=== PATIENT | female | born 1970 | race Asian ===

== ENCOUNTER 2024-11-10 08:50 | Outpatient (REF) | payer OTHER, SELFPAY ==
--- NOTE | 2024-11-10 08:57 | EMG_ITS ---
Chief complaint: Bilateral hand numbness Reason for referral: Evaluate for Carpal Tunnel Syndrome versus ulnar neuropathy versus cervical radiculopathy Referred by: Linda GARCIA Procedure done: Bilateral upper extremities NCS/EMG Precautions and/or limitations: Left arm needle EMG deferred, patient has chronic ulcer on left deltoid. Occitan speaking, seen with denture finisher. The limb temperature was monitored continuously and remained between 32-36 degrees C during the performance of the NCS. Nerve Conduction Studies Anti Sensory Summary Table ?Stim Site NR Onset (ms) Norm Onset (ms) Peak (ms) Norm Peak (ms) O-P Amp (?V) Norm O-P Amp Site1 Site2 Delta-0 (ms) Dist (cm) Steve (m/s) Norm Steve (m/s) Left Median Anti Sensory (2nd Digit) Wrist ? 2.4 3.0 <3.6 68.4 >10 Wrist 2nd Digit 2.4 14.0 58 Right Median Anti Sensory (2nd Digit) Wrist ? 2.1 2.8 <3.6 63.3 >10 Wrist 2nd Digit 2.1 14.0 67 Left Ulnar Anti Sensory (5th Digit) Wrist ? 2.3 2.9 <3.7 46.1 >15.0 Wrist 5th Digit 2.3 14.0 61 Right Ulnar Anti Sensory (5th Digit) Wrist ? 2.3 2.9 <3.7 28.4 >15.0 Wrist 5th Digit 2.3 14.0 61 Motor Summary Table ?Stim Site NR Onset (ms) Norm Onset (ms) O-P Amp (mV) Norm O-P Amp iAmp (mV) Amp (1st) (%) Site1 Site2 Delta-0 (ms) Dist (cm) Steve (m/s) Norm Steve (m/s) Left Median Motor (Abd Poll Brev) Wrist ? 3.4 <3.9 6.4 >4.5 7.4 100.0 Elbow Wrist 3.4 19.5 57 >45 Elbow ? 6.8 4.1 5.1 64.1 Right Median Motor (Abd Poll Brev) Wrist ? 3.2 <3.9 11.6 >4.5 14.2 100.0 Elbow Wrist 3.7 20.0 54 >45 Elbow ? 6.9 10.8 12.7 93.1 Left Ulnar Motor (Abd Dig Minimi) Wrist ? 2.7 <3.0 10.9 >5 13.0 100.0 B Elbow Wrist 3.1 17.0 55 >45 B Elbow ? 5.8 10.3 12.6 94.5 A Elbow B Elbow 1.9 10.0 53 >45 A Elbow ? 7.7 8.9 11.0 81.7 Right Ulnar Motor (Abd Dig Minimi) Wrist ? 2.9 <3.0 11.1 >5 12.3 100.0 B Elbow Wrist 3.0 17.0 57 >45 B Elbow ? 5.9 9.2 10.9 82.9 A Elbow B Elbow 1.7 10.0 59 >45 A Elbow ? 7.6 7.4 9.0 66.7 Comparison Summary Table ?Stim Site NR Peak (ms) Norm Peak (ms) P-T Amp (?V) Site1 Site2 Delta-P (ms) Norm Delta (ms) Right Median/Radial Dig I Comparison (Digit 1 - 10cm) Median ? 2.3 <2.9 163.7 Median Radial 0.0 Radial ? 2.3 <2.8 30.8 EMG ?Side Muscle Nerve Root Ins Act Fibs Psw Amp Dur Poly Recrt Int Pat Comment Right 1stDorInt Ulnar C8-T1 Nml Nml Nml Nml Nml 0 Nml Complete Right FlexCarRad Median C6-7 Nml Nml Nml Nml Nml 0 Nml Complete Right Biceps Musculocut C5-6 Nml Nml Nml Nml Nml 0 Nml Complete Right Triceps Radial C6-7-8 Nml Nml Nml Nml Nml 0 Nml Complete Right Deltoid Axillary C5-6 Nml Nml Nml Nml Nml 0 Nml Complete FINDINGS: All motor and sensory nerves tested showed normal latencies, amplitudes and conduction velocities. Concentric needle EMG was performed in selected muscles of the right upper extremity. Study did not reveal signs of electric abnormalities as shown in the table above. IMPRESSION: 1. This is a normal study. 2. There is no electrodiagnostic evidence for median neuropathy, ulnar neuropathy, brachial plexopathy, or cervical radiculopathy. Thank you for your kind referral. Korin Mendosa MD, ABHINAV Board Certified, [place] [employer] and [employer] (ABPMR) Board Certified, [place] Board [employer] Electrodiagnostic [employer] (ABEM) CODIN [phone] ANGEL
--- OUTSIDE RECORDS SUMMARY | 2024-11-10 10:21 | XMS_ITS | Clinical Summary ---
Author Organization [facility] Address [address] [place] [address] Care Team Providers Care Meter Reader Inspector Name Role Phone Paulino Cote MD Primary Care Provider Unavailab le Medications Medication Sig Dispensed Refills Start Date End Date Status meloxicam (MOBIC) 7.5 MG tablet Take 1 tablet (7.5 mg total) by mouth daily. 30 tablet 0 01/11/2019 Active Active Problems No known active problems Social History Tobacco Use Types Packs/Day Years Used Date Smoking Tobacco: Never Assessed Sex and Gender Information Value Date Recorded Sex Assigned at Not on file Gender Identity Not on file Sexual Orientation Not on file Job Start Date Occupation Industry Not on file Not on file Not on file Plan of Treatment Health Maintenance Due Date Last Done Comments Hepatitis B Vaccines (1 of 3 - 3-dose series) 1969 Hepatitis C Screening 1969 COVID-19 Vaccine (#1) 02/10/1970 Depression Screening 1981 Preventative Health Evaluation 08/12/1987 DTap / Tdap / Td (1 - Tdap) 1988 Cervical Cancer Screening (P ap Smear) 1990 Colon Cancer Screening (Colonoscopy) 2014 Breast Cancer Screening (Mammogram) 08/12/2019 Shingrix-Zoster Vaccine (1 of 2) 08/12/2019 Influenza Vaccine (#1) 2024 Pneumococcal Vaccine Aged Out No long er eligible based on patient's age to complete this topic RSV Ped < 20 months Aged Out No longe r eligible based on patient's age to complete this topic Care Teams Meter Reader Inspector Relationship Specialty Start Date End Date Paulino Cote MD PCP - General Internal Medicine 10/30/18
--- OUTSIDE RECORDS SUMMARY | 2024-11-10 10:21 | XMS_ITS | Clinical Summary ---
Author Organization [facility] [address] [place] [address] Address [address], [place] Phone Care Team Providers Care Deer Farmer Name Role Phone Paulino Cote MD Primary Care Provider [phone] Allergies Active Allergy Reactions Criticality Noted Date Comments Levofloxacin 09/24/2016 Levaquin Medications docusate sodium (COLACE) 100 mg capsule Take 1 capsule (100 mg total) by mouth 2 (two) times a day. 09/23/19 24 Active polyethylene glycol (MIRALAX) 17 gram packet Take 1 Packet by mouth daily. 09/23/19 24 Active gabapentin (NEURONTIN) 300 mg capsule Take 1 capsule (300 mg total) by mouth 2 (two) times a day. 05/07/19 23 Active ibuprofen (ADVIL,MOTRIN) 800 mg tablet TAKE 1 TABLET EVERY 8 HOURS NEEDED FOR PAIN, TAKE WITH FOOD. 09/03/19 21 Active blood sugar diagnostic (FreeStyle Lite Strips) test strip USE TEST BLOODS SUGAR TWICE DAILY 03/09/19 21 Active FREESTYLE LANCETS MISC USE TO TEST BLOOD SUGAR TWICE DAILY 03/09/19 21 Active blood-glucose meter kit 1 Strip by Does not apply route 2 times daily. 02/06/20 18 Active atorvastatin (LIPITOR) 40 mg tabletIndications: Type 2 diabetes mellitus with other diabetic neurological complication (CMS/HCC V24, CMS/HCC V28) TAKE 1 TABLET BY MOUTH EVERY DAY 90 tablet 1 02/09/20 24 Active mupirocin (BACTROBAN) 2 % ointment Apply twice a day on the rash for 5 days 22 g 3 02/09/20 24 Active dulaglutide (Trulicity) 4.5 mg/0.5 mL pen injector injectionIndicatio ns:Type 2 diabetes mellitus with neurological manifestations ([facility] V24, [facility] V28) Inject 0.5 mL (4.5 mg total) under the skin every 7 (seven) days. 6 mL 3 10/07/19 25 Active empagliflozin (Jardiance) 25 mg tablet Take 25 mg by mouth daily. 90 tablet 3 10/07/19 25 Active losartan (Cozaar) 50 mg tablet Take 1 tablet (50 mg total) by mouth 1 (one) time each day. 30 each 11 10/23/19 25 026 Active betamethasone dipropionate (DIPROSONE) 0.05 % cream Apply twice a day on the rash for 7 days avoid itching 45 g 3 10/23/19 25 Active losartan-hydroCHLO ROthiazide (HYZAAR) 100-12.5 mg per tablet Take 1 tablet by mouth 1 (one) time each day. 90 tablet 1 02/09/20 24 025 Discontinued Hospital, Clinic, or Other Facility Administered Medication Ordered Dose Route Frequency Start Date End Date Status lidocaine (XYLOCAINE) 1 % injection 3 mLIndications:Adhesi ve capsulitis of left shoulder 3 mL inj Once PRN Procedure 10/12/2024 10/12/2024 Ended triamcinolone acetonide (KENALOG-40) 40 mg/mL injection 40 mgIndications:Adhesi ve capsulitis of left shoulder 40 mg IAtc Once PRN Procedure 10/12/2024 10/12/2024 Ended Active Problems Problem Noted Date Diagnosed Date Hyperlipidemia 10/08/2017 Type 2 diabetes mellitus wit h neurological manifestations ([facility] V24, [facility] V28) 10/08/2017 Overview (12/30/2023): Comments: Eye exam Dr. Urena 09/12/2011 -ve for Retinopathy Vitamin D deficiency 10/08/2017 Carpal tunnel syndrome 06/26/2017 Hypertension 06/26/2017 Iron deficiency anemia 06/26/2017 Nephrolithiasis 01/28/2017 Overview (12/30/2023): Comments: s/p lithotripsy Eczema 04/30/2016 Allergic rhinitis 04/17/2010 Encounters Date Type Department Care Team Description 10/25/2024 Telephone Internal Medicine [address] [phone] Alex Feldman [place] 10/25/2024 Telephone Internal Medicine [facility] [address] [phone] Haile Flores [place] 10/22/2024 12:30 PM EDT Office Visit Internal [facility] [address] [phone] Paulino Cote MD Dizziness (Primary Dx); Type 2 diabetes mellitus with neurological manifestations (CMS/HCC V24, CMS/HCC V28); Neurotic excoriations 10/22/2024 [facility] [address] [phone] Paulino Cote MD 10/21/2024 [facility] Medicine [facility] [address] [phone] Paulino Cote MD 10/13/2024 Telephone Orthopedic Surgery [facility] [address] [place] [phone] Dony Feldman [place] 10/12/2024 10:55 AM EDT Ancillary Procedure Orthopedic Surgery [facility] [address] [place] [phone] 10/12/2024 10:30 AM EDT Office Visit Orthopedic Surgery [facility] [address] [phone] Tracey Sequeira MD Adhesive capsulitis of left shoulder (Primary Dx) 10/06/2024 8:30 AM EDT Office Visit [address] [phone] Brea Kruse PA Type 2 diabetes mellitus with neurological manifestations (CMS/HCC V24, CMS/HCC V28) (Primary Dx); Secondary hypertension; Hyperlipidemia, unspecified hyperlipidemia type 10/05/2024 9:00 AM EDT Office Visit Orthopedic Surgery - [place] 175 [facility] [address] [place] [phone] Linda Kirkpatrick PA Hand paresthesia (Primary Dx) 09/17/2024 9:30 AM EDT Office Visit Orthopedic Surgery [facility] 160 [address] [facility] [address] [place] [phone] Tracey Sequeira MD Adhesive capsulitis of left shoulder (Primary Dx); Left hand pain 2024 11:00 AM EDT Office Visit Internal Medicine - [place] 175 [facility] [address] [place] [address] Paulino Cote MD Primary hypertension (Primary Dx); Type 2 diabetes mellitus with neurological manifestations (CMS/[facility] V24, CMS/[facility] V28); Hypercholesterolemia; Right lumbar radiculitis from Last 3 Months Immunizations Name Administration Dates Next Due Influenza trivalent, MDCK, 0 .5mL, preservative free (Flucelvax) 6mo and older 11/06/2024 Influenza, Unspecified 12/20/2023,12/23/2022,07/2021 Pneumococcal conjugate 13 va lent (Prevnar 13, PCV13) 2mo and older 07/08/2017 Pneumococcal polysaccharide 23 valent (Pneumovax 23) 2yo and older 07/25/2020 Tdap Tetanus diptheria acell ular pertussis (Boostrix; Adacel) 7yo and older 07/25/2020 Surgical History Surgery Date Site/Laterality Comments LITHOTRIPSY PROCEDURE: HISTORICAL LITHOTRIPSY COLONOSCOPY 06/14/2020 N/A PROCEDURE: HISTORICAL COLONOSCOPY; COMMENT: negative Medical History Medical History Date Comments Allergic rhinitis 04/17/2010 DX:Allergic rh initis Carpal tunnel syndrome 06/26/2017 DX:Carpal tunnel syndrome Eczema 04/30/2016 DX:Eczema Hyperlipidemia 10/08/2017 DX:Hyperlipidemi a Hypertension 06/26/2017 DX:Hypertension Iron deficiency anemia 06/26/2017 DX:Iron d eficiency anemia Nephrolithiasis 01/28/2017 DX:Nephrolithias is; COMMENT: Comments: s/p lithotripsy Type 2 diabetes mellitus wit h neurological manifestations (CMS/HCC V24, CMS/[facility] V28) 10/08/2017 DX:Type 2 diabetes mellitus with neurological manifestations ([facility]); COMMENT: Comments: Eye exam Dr. Urena 09/12/2011 -ve for Retinopathy Vitamin D deficiency 10/08/2017 DX:Vitamin D deficiency Kidney stones DX:Kidney stones Abdominal pain DX:Abdominal pillo n Constipation DX:Constipation Family History Medical History Relation Name Comments No Known Problems Father Relation Name Status Comments Father Mother Social History Tobacco Use Types Packs/Day Years Used Date Smoking Tobacco: Never Smokeless Tobacco: Never Tobacco Cessation:Counseling Given: Not Answered Alcohol Use Standard Drinks/Week Comments No 0 (1 standard drink = 0.6 oz pur e alcohol) Comments Unknown Sex and Gender Information Value Date Recorded Sex Assigned at Female 05/05/2024 1:29 PM EST Legal Sex Female 1:42 AM EST Gender Identity Female 05/05/2024 1:29 PM EST Sexual Orientation Straight 05/05/2024 1: 29 PM EST Obstetrics History Last Filed Vital Signs Vital Sign Reading Time Taken Comments Blood Pressure 126/80 10/22/2024 11:56 AM EDT Pulse 111 10/22/2024 11:56 AM EDT Temperature 35.6 C (96 F) 10/22/2024 11:56 AM EDT Respiratory Rate - - Oxygen Saturation 99% 10/22/2024 11:56 AM EDT Inhaled Oxygen Concentration - - Weight 67.2 kg (148 lb 3.2 oz) 10/22/2024 11:56 AM EDT Height 160 cm (5' 3 ) 10/22/2024 11:56 AM EDT Body Mass Index 26.25 10/22/2024 11:56 AM EDT Plan of Treatment Upcoming Encounters Date Type Department Care Team (Late st Contact Info) Description 01/06/2025 1:00 PM EST Office Visit [facility] Hematology Oncology [address] [place] [phone] Nataliya Turner PA [address] [place] [address] 01/07/2025 10:00 AM EST Office Visit Endocrinology [address] [phone] Brea Kruse PA [address] [place] [address] 01/13/2025 11:30 AM EST Office Visit Orthopedic Surgery - [place] 160 175 [facility] 160 [place] [phone] Tracey Sequeira MD 175 [facility] 160 [place] [address] 02/10/2025 11:00 AM EST Office Visit Internal Medicine - [place] 175 [facility] 200 [place] [phone] Paulino Cote MD 175 [facility] 200 [place] [address] Health Maintenance Due Date Last Done Comments Diabetes: Annual Foot Exam 08/12/1979 Hepatitis A Vaccines (1 of 2 - Risk 2-dose series) 1988 Hepatitis B Vaccines (1 of 3 - 19+ 3-dose series) 1988 Zoster Vaccines (1 of 2) 08/12/2019 HIV Screening 02/09/2022 Social Influencers of Health Screening 02/09/2022 Breast Cancer Screening 07/05/2022 07/05/2020 Depression Screening 03/03/2024 COVID-19 Vaccine ( season) 2024 03/21/2021, 08/23/2020, 08/02/2020 Diabetes: Annual Retina Eye Exam 03/16/2025 03/16/2024, 01/30/2023 Diabetes: Annual Urine Albumin-Creatinine Ratio (uACR) 04/07/2025 04/07/2024, 12/24/2023 Diabetes: Blood Sugar Control Test (HGBA1C) 04/08/2025 10/06/2024, 07/06/2024, 04/07/2024, Additional history exists Cervical Cancer Screening: Pap Smear 05/27/2025 05/27/2022 Pneumococcal Vaccine: 50+ Years (3 of 3 - PCV20 or PCV21) 07/25/2025 07/25/2020, 07/08/2017 Diabetes: Annual GFR (Glomerular Filtration Rate) 10/22/2025 10/22/2024, 04/07/2024, 05/29/2023 Hypertension/CHF/CAD Annual BMP Blood Test 10/22/2025 10/22/2024, 04/07/2024, 05/29/2023 Cholesterol Screening (Lipid Panel) 04/07/2029 04/07/2024, 05/29/2023 Colorectal Cancer Screening: Colonoscopy 06/14/2030 06/14/2020 DTaP,Tdap,and Td Vaccines (2 - Td or Tdap) 07/25/2030 07/25/2020 Hepatitis C Screening Completed 05/06/2017 Influenza Vaccine Completed 11/06/2024, , 12/23/2022, Additional history exists HIB Vaccines Aged Out No longer eligi ble based on patient's age to complete this topic HPV Vaccines Aged Out No longer eligi ble based on patient's age to complete this topic IPV Vaccines Aged Out No longer eligi ble based on patient's age to complete this topic MMR Vaccines Aged Out No longer eligi ble based on patient's age to complete this topic Meningococcal ACWY Vaccine Aged Out N o longer eligible based on patient's age to complete this topic Meningococcal B Vaccine Aged Out No l onger eligible based on patient's age to complete this topic RSV Immunization Patients Under 20 months Aged Out No longer eligible based on patient's age to complete this topic Varicella Vaccines Aged Out No longer eligible based on patient's age to complete this topic Procedures Procedure Name Priority Date/Time Associated Diagnosis Comments CBC WITH AUTO DIFFERENTIAL Routine 10/22/2024 12:34 PM EDT Dizziness Type 2 diabetes mellitus with neurological manifestations (CMS/HCC V24, CMS/HCC V28) CBC AND DIFFERENTIAL Routine 10/22/2024 12:34 PM EDT Dizziness Type 2 diabetes mellitus with neurological manifestations (CMS/HCC V24, CMS/HCC V28) COMPREHENSIVE METABOLIC PANEL Routine 10/22/2024 12:34 PM EDT Dizziness Type 2 diabetes mellitus with neurological manifestations (CMS/HCC V24, CMS/HCC V28) POC URINE NON-AUTO W/O MICRO Routine 10/22/2024 12:29 PM EDT Type 2 diabetes mellitus with neurological manifestations (CMS/HCC V24, CMS/HCC V28) US ARTHROCENTESIS ASP INJ JOINT MAJOR RIGHT Routine 10/12/2024 10:52 AM EDT Adhesive capsulitis of left shoulder [place] ARTHROCENTESIS/ASPIRAT ION/INJECTION MAJOR JOINT/BURSA W/O U/S GUIDANCE Routine 10/12/2024 10:30 AM EDT Adhesive capsulitis of left shoulder HEMOGLOBIN A1C Routine 10/06/2024 9:14 AM EDT Type 2 diabetes mellitus with neurological manifestations (CMS/HCC V24, CMS/HCC V28) POC GLUCOSE Routine 10/06/2024 8:39 AM EDT Type 2 diabetes mellitus with neurological manifestations (CMS/HCC V24, CMS/HCC V28) XR HAND 3+ VIEWS LEFT Routine 09/17/2024 9:34 AM EDT Left hand pain MICROALBUMIN CREATININE URINE RATIO Routine 04/07/2024 10:57 AM EST Type 2 diabetes mellitus with neurological manifestations (CMS/HCC V24, CMS/HCC V28) LIPID PANEL WITH REFLEX TO DIRECT LDL Routine 04/07/2024 10:57 AM EST Type 2 diabetes mellitus with neurological manifestations (CMS/HCC V24, CMS/HCC V28) DIABETES EYE EXAM Routine 01/30/2023 PAP SMEAR Routine 05/27/2022 [facility] SCREENING DIGITAL Routine 07/05/2020 8:50 AM EDT Encounter for screening mammogram for malignant neoplasm of breast COLONOSCOPY Routine 06/14/2020 HEPATITIS C SCREENING Routine 05/06/2017 from Last 3 Months or Most Recently Relevant to Health Maintenance Results * (ABNORMAL) CBC auto differential (10/22/2024 12:34 PM EDT) WBC 13.7(H) 4.8 - 10.8 K/mcL LAB HEMETOLOGY METHOD 10/22/2024 1:53 PM EDT [facility] RBC 5.60(H) 3.80 - 4.80 M/mcL LAB HEMETOLOGY METHOD 10/22/2024 1:53 PM EDT [facility] Hemoglobin 15.7 11.5 - 16.0 g/dL LAB HEMETOLOGY METHOD 10/22/2024 1:53 PM EDT [facility] Hematocrit 46.8 35.0 - 47.0 % LAB HEMETOLOGY METHOD 10/22/2024 1:53 PM EDT [facility] MCV 83.9 79.0 - 98.0 FL LAB HEMETOLOGY METHOD 10/22/2024 1:53 PM EDT [facility] MCH 28.1 27.0 - 32.0 pcg LAB HEMETOLOGY METHOD 10/22/2024 1:53 PM EDT [facility] MCHC 33.5 32.0 - 37.0 g/dL LAB HEMETOLOGY METHOD 10/22/2024 1:53 PM EDT [facility] RDW 12.6 11.0 - 15.0 % LAB HEMETOLOGY METHOD 10/22/2024 1:53 PM EDT [facility] Platelets 274 130 - 400 K/mcL LAB HEMETOLOGY METHOD 10/22/2024 1:53 PM EDT [facility] MPV 11.9(H) 7.0 - 11.0 FL LAB HEMETOLOGY METHOD 10/22/2024 1:53 PM EDT [facility] NRBC 0.0 <1.0 % LAB HEMETOLOGY METHOD 10/22/2024 1:53 PM EDT [facility] NRBC Absolute 0.00 <0.10 K/mcL LAB HEMETOLOGY [facility] Neut[facility]ils Relative 78.3 % LAB HEMETOLOGY METHOD 10/22/2024 1:53 PM [facility] Lymphocytes Relative 14.3 % LAB HEMETOLOGY METHOD 10/22/2024 1:53 PM [facility] Monocytes Relative 6.2 % LAB HEMETOLOGY METHOD 10/22/2024 1:53 PM [facility] Eosinophils Relative 0.4 % LAB HEMETOLOGY METHOD 10/22/2024 1:53 PM [facility] Basophils Relative 0.2 % LAB HEMETOLOGY METHOD 10/22/2024 1:53 PM [facility] Immature Granulocytes Relative 0.6 % LAB HEMETOLOGY METHOD 10/22/2024 1:53 PM [facility] Neutrophils Absolute 10.74(H) 1.50 - 7.00 K/mcL LAB HEMETOLOGY METHOD 10/22/2024 1:53 PM [facility] Lymphocytes Absolute 1.96 1.00 - 5.00 K/mcL LAB HEMETOLOGY METHOD 10/22/2024 1:53 PM [facility] Monocytes Absolute 0.85 0.20 - 1.00 K/mcL LAB HEMETOLOGY METHOD 10/22/2024 1:53 PM [facility] Eosinophils Absolute 0.05 0.00 - 0.50 K/mcL LAB HEMETOLOGY METHOD 10/22/2024 1:53 PM [facility] Basophils Absolute 0.03 0.00 - 0.20 K/mcL LAB HEMETOLOGY METHOD 10/22/2024 1:53 PM [facility] Immature Granulocytes Absolute 0.08(H) 0.00 - 0.03 K/mcL LAB HEMETOLOGY METHOD 10/22/2024 1:53 PM EDT [facility] Blood Venous blood specimen / Unknown Venipuncture / Unknown 10/22/2024 12:34 PM EDT 10/22/2024 12:34 PM EDT us Paulino Cote MD LAB BLOOD ORDERABLES Final Resul t [facility] [address] [place] [address], [place] [phone] * (ABNORMAL) Comprehensive metabolic panel (10/22/2024 12:34 PM EDT) Sodium 135 133 - 145 mmol/L LAB CHEMISTRY METHOD 10/22/2024 2:44 PM [facility] Potassium 4.1 3.5 - 5.5 mmol/L LAB CHEMISTRY METHOD 10/22/2024 2:44 PM [facility] Chloride 100 96 - 110 mmol/L LAB CHEMISTRY METHOD 10/22/2024 2:44 PM [facility] CO2 25 21 - 32 mmol/L LAB CHEMISTRY METHOD 10/22/2024 2:44 PM [facility] Anion Gap 10 3 - 11 LAB CHEMISTRY METHOD 10/22/2024 2:44 PM [facility] Glucose 211(H) 70 - 100 mg/dL LAB CHEMISTRY METHOD 10/22/2024 2:44 PM [facility] BUN 18 5 - 25 mg/dL LAB CHEMISTRY METHOD 10/22/2024 2:44 PM [facility] Creatinine 0.87 0.50 - 1.10 mg/dL LAB CHEMISTRY METHOD 10/22/2024 2:44 PM [facility] eGFR 79 >=60 mL/min/1. 73m2 LAB CHEMISTRY METHOD 10/22/2024 2:44 PM [facility] Comment:Calculation based on the Chronic Kidney Disease Epidemiology Collaboration (CKD-EPI) equation refit without adjustment for race. BUN/Creatinine Ratio 20.7 LAB CHEMISTRY METHOD 10/22/2024 2:44 PM EDT [facility] Calcium 9.6 8.5 - 10.5 mg/dL LAB CHEMISTRY METHOD 10/22/2024 2:44 PM EDT [facility] AST (SGOT) 26 10 - 42 unit/L LAB CHEMISTRY METHOD 10/22/2024 2:44 PM EDT [facility] ALT (SGPT) 51 10 - 60 unit/L LAB CHEMISTRY METHOD 10/22/2024 2:44 PM EDT [facility] Alkaline Phosphatase 139(H) 42 - 121 unit/L LAB CHEMISTRY METHOD 10/22/2024 2:44 PM EDT [facility] Total Protein 8.3(H) 6.0 - 8.0 g/dL LAB CHEMISTRY METHOD 10/22/2024 2:44 PM EDT [facility] Albumin 4.5 3.2 - 5.0 g/dL LAB CHEMISTRY METHOD 10/22/2024 2:44 PM EDT [facility] Total Bilirubin 0.6 0.0 - 1.4 mg/dL LAB CHEMISTRY METHOD 10/22/2024 2:44 PM EDT [facility] Blood Venous blood specimen / Unknown Venipuncture / Unknown 10/22/2024 12:34 PM EDT 10/22/2024 12:34 PM EDT us Paulino Cote MD LAB BLOOD ORDERABLES Final Resul t [facility] [address] [place] [address], * (ABNORMAL) POC Urine Non-Auto W/O Micro (10/22/2024 12:29 PM EDT) Glucose UA POC 3+(A) Negative, Trace mg/dL Leukocytes UA POC Negative Negative Nitrite UA POC Negative Negative Urobilinogen UA POC 0.2 E.U./dL 0.2 E.U./dL, 1.0 E.U./dL, 8 , Unable to interpret due to interfering substances mg/dL Protein UA POC Negative Negative mg/dL PH UA POC 5.5 Blood UA POC Negative Negative Specific [place] UA POC 1.020 Ketones UA POC 1+(A) Negative Bilirubin UA POC Negative Negative Urine Urine specimen obtained by clean catch procedure / Unknown 10/22/2024 12:29 PM EDT us Paulino Cote MD POINT OF CARE TEST ENTER/EDIT OR DERABLES Final Result * US Arthrocentesis Asp Inj Joint Major Right (10/12/2024 10:52 AM EDT) Anatomical Region Laterality Modality Extremity Right Ultrasound Narrative 10/12/2024 5:13 PM EDT PROCEDURE Left glenohumeral injection for osteoarthritis. Risk including infection, post-injection steriod flare, hypopigmentation, neurovascular injury and fat atrophy, were thoroughly discussed with the patient. The patients understood the risks and gave verbal consent for the procedure. The posteriorlateral shoulder was prepped with Chloro-prep after anatomical landmarks where palpated and visualized with ultrasound. Ethyle chloride was used as to topical anesthetic. Then using a 23-gauge 3-1/2 inch needle lidocaine 2 mL was used as a local anesthetic. Kenalog 40 mg and lidocaine 3 cc were injected into the joint using sterile technique under ultrasound guidance without complications. The patient tolerated the procedure well. Aftercare was thoroughly discussed with the patient. Images were recorded and will permanently stored in patients medical record. us Tracey Sequeira MD IMG US PROCEDURES Final Result * [place] ARTHROCENTESIS/ASPIRATION/INJECTION MAJOR JOINT/BURSA W/O U/S GUIDANCE (10/12/2024 10:30 AM EDT) Narrative Tracey Sequeira MD - 10/12/2024 10:30 AM EDT Tracey Sequeira MD 10/12/2024 5:13 PM L Inj/Asp: L glenohumeral Indications: pain Details: 22 G needle, posterior approach (guidance: US guided ) Medications: 3 mL lidocaine 1 %; 40 mg triamcinolone acetonide 40 mg/mL Outcome: tolerated well, no immediate complications Informed Consent: Laterality: Left Relevant images/test results available and reviewed: yes Health status cleared: Yes Procedure/treatment, purpose, treatment alternatives, risks/potential complications and benefits explained: yes Risk/complications/benefits details: Risks include bleeding, infection, increase in pain Patient questions answered: yes Patient agrees, verbalizes understanding, and wants to proceed: yes Consent given by: Patient Informed consent discussion completed by Physician/TARI with patient: Verbal Pre-procedure timeout performed: yes us Tracey Sequeira MD IN CLINIC/BEDSIDE ORDERABLES F inal Result * (ABNORMAL) Hemoglobin A1c (10/06/2024 9:14 AM EDT) Hemoglobin A1C 9.3(H) <6.5 % LAB CHEMISTRY METHOD 10/06/2024 11:11 AM EDT [facility] Mean Bld Glu Estim. 220 mg/dL LAB CHEMISTRY METHOD 10/06/2024 11:11 AM EDT [facility] Blood Venous blood specimen / Unknown Venipuncture / Unknown 10/06/2024 9:14 AM EDT 10/06/2024 9:14 AM EDT us Brea GARCIA LAB BLOOD ORDERABLES Final Result [facility] [address] [place] [address], [place] [phone] * POC glucose manually resulted (10/06/2024 8:39 AM EDT) Glucose POC 286 mg/dL Comment:Fasting Blood Capillary blood specimen / Unknown 10/06/2024 8:39 AM EDT Brea GARCIA POINT OF CARE TEST ENTER/ED IT ORDERABLES Final Result * XR Hand 3+ Views Left (09/17/2024 9:34 AM EDT) Anatomical Region Laterality Modality Upper Extremities, Hand Left Computed Radiography 10/06/2024 6:30 PM EDT Impressions 10/06/2024 6:31 PM EDT No acute fracture or dislocation of the left hand. Mild osteoarthritic changes at the carpometacarpal joints. -------- FINAL REPORT -------- Dictated By: Radha Perea Dictated Date: 10/06/2024 18:30 ET Assigned Physician: Radha Perea Reviewed and Electronically Signed By: Radha Perea Signed Date: 10/06/2024 18:31 ET Workstation ID: [id number] Transcribed By: Self Edit Transcribed Date: 10/06/2024 18:30 ET Narrative 10/06/2024 6:31 PM EDT HISTORY: hand pain diffuse Left hand pain, multiple falls TECHNIQUE: AP, lateral, and oblique radiographs of the left hand COMPARISON: None FINDINGS: There is normal mineralization with no evidence of fracture or malalignment. There is mild joint space narrowing at the carpometacarpal joints with subchondral sclerosis. Mild soft tissue swelling at the wrist. Procedure Note Radha Perea MD - 10/06/2024 HISTORY: hand pain diffuse Left hand pain, multiple falls TECHNIQUE: AP, lateral, and oblique radiographs of the left hand COMPARISON: None FINDINGS: There is normal mineralization with no evidence of fracture ormalalignment. There is mild joint space narrowing at the carpometacarpaljoints with subchondral sclerosis. Mild soft tissue swelling at thewrist. IMPRESSION: No acute fracture or dislocation of the left hand. Mild osteoarthritic changes at the carpometacarpal joints. -------- FINAL REPORT -------- Dictated By: Radha Perea Dictated Date: 10/06/2024 18:30 ET Assigned Physician: Radha Perea Reviewed and Electronically Signed By: Radha Perea Signed Date: 10/06/2024 18:31 ET Workstation ID: [id number] Transcribed By: Self Edit Transcribed Date: 10/06/2024 18:30 ET us Tracey Sequeira MD IMG XR PROCEDURES Final Result * (ABNORMAL) Lipid panel with reflex to direct LDL (04/07/2024 10:57 AM EST) Cholesterol 192 0 - 200 mg/dL LAB CHEMISTRY METHOD 04/07/2024 5:26 PM EST [facility] Triglycerides 95 0 - 150 mg/dL LAB CHEMISTRY METHOD 04/07/2024 5:26 PM EST [facility] HDL 55 >=40 mg/dL LAB CHEMISTRY METHOD 04/07/2024 5:26 PM EST [facility] LDL Calculated 118(H) 0 - 100 mg/dL LAB CHEMISTRY METHOD 04/07/2024 5:26 PM [facility] VLDL Cholesterol [place] 19 mg/dL LAB CHEMISTRY METHOD 04/07/2024 5:26 PM EST [facility] Non HDL Chol. (LDL+VLDL) 137 <145 mg/dL LAB CHEMISTRY METHOD 04/07/2024 5:26 PM EST [facility] Chol/HDL Ratio 3.5 0.0 - 4.4 LAB CHEMISTRY METHOD 04/07/2024 5:26 PM [facility] Blood Venous blood specimen / Unknown Venipuncture / Unknown 04/07/2024 10:57 AM EST 04/07/2024 10:57 AM EST us Brea [facility] LAB BLOOD ORDERABLES Final Result [facility] [address] [place] [address], * (ABNORMAL) Microalbumin creatinine urine ratio (04/07/2024 10:57 AM EST) Creatinine, Urine 250.0 mg/dL LAB CHEMISTRY METHOD 04/07/2024 6:21 PM EST [facility] Microalb, Ur 64.4(H) 0.0 - 29.0 mg/L LAB CHEMISTRY METHOD 04/07/2024 6:21 PM EST [facility] Microalb/Crea t Ratio 26 <30 mg/g creat LAB CHEMISTRY METHOD 04/07/2024 6:21 PM EST [facility] Urine Urine specimen from urethra / Unknown Non-blood Collection / Unknown 04/07/2024 10:57 AM EST 04/07/2024 10:57 AM EST us Brea [facility] LAB URINE ORDERABLES Final Result [facility] [address] [place] [address], [place] [phone] * Diabetes Eye Exam (01/30/2023) Diabetes: Annual Retina Eye Exam abstracted Historical Provider MD HEALTH MAINTENANCE Final Result * Pap Smear (05/27/2022) Pap smear abstracted, no interpretation Historical Provider MD HEALTH MAINTENANCE Final Result * [facility] SCREENING DIGITAL (07/05/2020 8:50 AM EDT) Anatomical Region Laterality Modality Mammography 07/05/2020 7:04 AM EDT Narrative 07/05/2020 8:50 AM EDT [facility] Diagnostic Imaging Department [address] [place] [id number] Patient: ANNETTE ALLISON /Age/Sex: 1970 - 49 - F Unit#: [id number] Location/Status: SPDIMAM/REG CLI Mnemonic/Ordering Site: [facility] Ordering Physician: PAULINO COTE MD Areli Screening Digital - 07/05/20726 INDICATION: SCREENING COMPARISON: [facility] mammograms dating back to 09/12/2011 TECHNIQUE: CC and MLO views of the breasts were obtained, using full field digital mammography with 3D tomosynthesis views in the MLO projection. Computer aided detection with the [employer] was employed. FINDINGS: The breasts contain scattered fibroglandular tissues. No suspicious masses, suspicious microcalcifications, or areas of architectural distortion are identified. There are no secondary signs of breast malignancy. IMPRESSION: No specific mammographic evidence of breast malignancy. Lack of an imaging correlate should not deter or delay biopsy of a clinically significant palpable finding. BI-RADS - Category 1: Negative 3341F, 7025F Annual screening mammography is recommended. Patient entered into a reminder system with a target date for the next mammogram. [id number] / [id number]) , [id number] Dictating Physician: GILLES HUITRON MD Electronically Signed by: GILLES HUITRON MD Dic Date/Time: 07/05/20845 Sign date/Time: 07/05/20 0850 Procedure Note Gilles Huitron MD - 02/19/2022 [facility] Diagnostic Imaging Department [address] [place] [address] Patient: ANNETTE ALLISON /Age/Sex: 1970 - 49 - F Unit#: [id number] Location/Status: SPDIMAM/REG CLI Mnemonic/Ordering Site: [facility] Ordering Physician: PAULINO COTE MD Areli Screening Digital - 07/05/20726 INDICATION: SCREENING COMPARISON: [facility] mammograms dating back to 09/12/2011 TECHNIQUE: CC and MLO views of the breasts were obtained, using full field digital mammography with 3D tomosynthesis views in the MLO projection. Computer aided detection with the [employer] 7.2-H was employed. FINDINGS: The breasts contain scattered fibroglandular tissues. No suspicious masses, suspicious microcalcifications, or areas ofarchitectural distortion are identified. There are no secondary signs of breastmalignancy. IMPRESSION: No specific mammographic evidence of breast malignancy. Lack of an imaging correlate should not deter or delay biopsy of aclinically significant palpable finding. BI-RADS - Category 1: Negative 3341F, 7025F Annual screening mammography is recommended. Patient entered into a reminder system with a target date for the next mammogram. G0870 / [id number]) , [id number] Dictating Physician: GILLES HUITRON MD Electronically Signed by: GILLES HUITRON MD Dic Date/Time: 07/05/20 0846 Sign date/Time: 07/05/20 0850 Paulino Cote MD IMG BI PROCEDURES Final Result * Colonoscopy (06/14/2020) Colonoscopy abstracted, no interpretation Anatomical Region Laterality Modality Other Historical Provider HEALTH MAINTENANCE Final Result * Hepatitis C Screening (05/06/2017) Hepatitis C Screening abstracted Historical Carlos COLON HEALTH MAINTENANCE Final Result from Last 3 Months or Most Recently Relevant to Health Maintenance Insurance [facility] [place] [address] Care Teams [employer] Relationship Specialty Start Date End Date Paulino Cote MD [address] [place] [address] [address] [place] [address] PCP - General Internal Medicine 01/16/18
--- OUTSIDE RECORDS SUMMARY | 2024-11-10 10:21 | XMS_ITS ---
Author Name [facility] [place]) Organization Unknown Care Team Organization Name Specialty Phone Email Start Date End Da omer [facility] SHERI GOLDMAN Primary Care 01/08/2022 10/20/19 24
== END 2024-11-10 08:51 | disposition home or self-care (01) ==
LOC: HO.NEURO 08:50
PROVIDERS: PCP Internal Medicine; Visit Provider Physician Assistant
DX: R20.2 Paresthesia of skin (principal)
CPT/HCPCS: 95886; 95911

== ENCOUNTER → 2024-11-10 08:57 | Outpatient (BNV) | payer OTHER, SELFPAY | PROVIDERS: PCP Internal Medicine; Visit Provider Physical Medicine & Rehabilitation | DX: R20.2 Paresthesia of skin (principal) | CPT/HCPCS: 95886; 95911 ==